=== PATIENT | male | born 1990 | race Caucasian/White ===

== ENCOUNTER 2016-12-06 14:33 | Emergency (ER) | payer OTHER ==
[2016-12-06 14:38] VITALS: BP 139/78; PULSE 69; TEMP 98.6; BMI 29.2
[2016-12-06] MEDS ORDERED: KETOROLAC TROMETHAMINE 60 MG/2 ML VIAL IM ONE (16:00)
[2016-12-06] MEDS ORDERED: KETOROLAC TROMETHAMINE 60 MG/2 ML VIAL ONE (16:04)
--- NOTE | 2016-12-06 16:08 | PDOC ---
History of Present Illness - General Chief Complaint: Back Pain Stated Complaint: BACK PAIN Time Seen by Provider: 12/06/16 15:47 - History of Present Illness Initial Comments: 12/06/16 16:02 CHIEF COMPLAINT: lower back pain HISTORY OF PRESENT ILLNESS: 26 yo M with no PMH [facility] with sudden onset left lower back pain while lifting "something heavy at work" this morning at 3 am. Patient states that the pain felt like "I pulled a muscle in the corner or something." No recent travel or sick contacts. PAST MEDICAL HISTORY: Denies past medical history FAMILY HISTORY: Denies SOCIAL HISTORY: Denies tobacco, alcohol, illicit drug use. SURGICAL HISTORY: Denies ALLERGIES: No known drug allergies REVIEW OF SYSTEMS General/Constitutional: Denies weakness. Cardiovascular: Denies chest pain or shortness of breath. Musculoskeletal: Pain to left lower back "where the muscle is." Denies loss of bowel or bladder function. Skin and breasts: Denies rash or easy bruising. Neurologic: Denies loss of sensation to extremities. Denies headache, vertigo, loss of consciousness, or loss of sensation. PHYSICAL EXAM General Appearance: Well-appearing, appropriately dressed. No apparent distress. HEENT: EOMI, PERRLA No photophobia, scleral icterus. Neck: Supple. Trachea midline. No tenderness, rigidity, carotid bruit, stridor , lymphadenopathy, or thyromegaly. Respiratory/Chest: Lungs CTAB. Cardiovascular: RRR. S1, S2. Musculoskeletal/Extremities: Tenderness to left lower back on palpation. No midline tenderness to thoracic or lumbar spine. Normal inspection. FROM of all extremities, normal capillary refill. Pelvis Stable. No CVA tenderness. No tenderness to extremities, pedal edema, swelling, erythema or deformity. Integumentary: Appropriate color, dry, warm. No cyanosis, erythema, jaundice or rash Neurologic: biomedical technician II-XII intact. Fully oriented, alert. Appropriate mood/affect. Motor strength 5/5. No appreciable EOM palsy, facial droop or sensory deficit. Past History - Past Medical History Allergies/Adverse Reactions: Allergies Allergy/AdvReac Type Severity Reaction Status Date / Time No Known Allergies Allergy Verified 12/06/16 14:36 Home Medications: Ambulatory Orders NK [No Known Home Medication] 12/06/16 Other medical history: denies - Immunization History Immunization Up to Date: Yes - Suicide/Smoking/Psychosocial Hx Smoking History: Never smoked Hx Alcohol Use: No Drug/Substance Use Hx: No *Physical Exam - Vital Signs Last Vital Signs Temp Pulse Resp BP Pulse Ox 98.6 F 69 18 139/78 97 12/06/16 14:37 12/06/16 14:37 12/06/16 14:37 12/06/16 14:37 12/06/16 14:37 Medical Decision Making - Medical Decision Making 12/06/16 16:06 26 yo M with no PMH [facility] with sudden onset left lower back pain while lifting "something heavy at work" this morning at 3 am. -60 mg Toradol IM Rx for naproxen and cyclobenzaprine sent to pharm. Advised patient to take medication as prescribed and follow up with orthopedics if pain persists past 1 week. Advised patient of signs and symptoms for return to ED. Patient verbalized understanding and agrees to plan. *DC/Admit/Observation/Transfer Diagnosis at time of Disposition: Pain of back and left lower extremity - Discharge Dispostion Disposition: HOME Condition at time of disposition: Stable Admit: No - Referrals Referrals: Janelle Mac [Primary Care Provider] - - Patient Instructions Printed Discharge Instructions: DI for Low Back Pain, DI for Muscle Strain Additional Instructions: Please take medications as prescribed; do not drive, drink alcohol, or operate machinery while taking cyclobenzaprine. Please follow up with orthopedics if pain persists past 1 week. If you develop any loss of sensation to your legs, loss of bowel or bladder function, or any new or worsening symptoms, please return to the ER.
== END 2016-12-06 16:14 | disposition home or self-care (01) ==
LOC: JERFT 14:33
PROC: 3E0233Z Introduction of Anti-inflammatory into Muscle, Percutaneous Approach (ICD-10-PCS; principal; 2016-12-06)
DX: M54.9 Dorsalgia, unspecified (principal)
CPT/HCPCS: 99281-25

== ENCOUNTER 2022-08-28 11:59 | Emergency (ER) | payer OTHER ==
[2022-08-28 12:07] VITALS: BP 127/79; PULSE 72; RESP 18; TEMP 97.2; BMI 29.2
== END 2022-08-28 14:43 | disposition home or self-care (01) ==
LOC: JER 11:59
DX: R51.9 Headache, unspecified (principal); J01.90 Acute sinusitis, unspecified
CPT/HCPCS: 70450-TC; 70486-TC; 99284-25